=== PATIENT | male | born 1970 | race Caucasian/White ===

== ENCOUNTER → 2020-01-10 13:39 | Outpatient (CLI) | payer OTHER, SELFPAY ==
--- NOTE | ~2020-01-10 | XR_ITS ---
EXAMINATION: XR knee LT min 4V DATE: 01/10/2020 13:58 INDICATION: Left knee pain. TECHNIQUE: 4 views of left knee were obtained. COMPARISON: None. FINDINGS: Bone alignment is normal. No fracture. There is mild tricompartmental osteoarthritis. No kn ee joint effusion. IMPRESSION: 1. Mild left knee osteoarthritis. Reviewed, dictated and finalized at location A. [facility] [address]
== END ==
PROVIDERS: PCP Physician Assistant; Visit Provider Physician Assistant
DX: M17.12 Unilateral primary osteoarthritis, left knee (principal)
CPT/HCPCS: 73564

== ENCOUNTER → 2020-11-20 10:43 | Outpatient (CLI) | payer OTHER, SELFPAY ==
--- NOTE | ~2020-11-20 | XR_ITS ---
EXAMINATION: XR hip RT min 2V DATE: 11/20/2020 10:56 INDICATION: Right hip pain. TECHNIQUE: 2 views of right hip were obtained. COMPARISON: None. FINDINGS: Bone alignment is normal. No fracture. There is mild right hip osteoarthritis. IMPRESSION: 1. Mild right hip osteoarthritis. Reviewed, dictated and finalized at location A. [employer]
== END ==
PROVIDERS: PCP Family Medicine; Visit Provider Physician Assistant
DX: M25.551 Pain in right hip (principal); M16.11 Unilateral primary osteoarthritis, right hip
CPT/HCPCS: 73502

== ENCOUNTER 2021-02-18 18:02 | Outpatient (CLI) | payer OTHER, SELFPAY ==
--- NOTE | ~2021-02-18 | XR_ITS ---
XR abdomen/kub 1V DATE: 02/18/2021 18:33 INDICATION: Hematuria since yesterday. No abdominal pain. TECHNIQUE: AP projection, 2 views COMPARISON: 11/20/[address] abdomen 01/05/2014 KUB FINDINGS: There is no evidence of bowel obstruction. The psoas shadows are intact. No visceromegaly i s evident. No significant abnormal calcification is noted. IMPRESSION: No significant abnormality Reviewed, dictated and finalized at Location A. Reviewed, dictated and finalized at location A. IMPRESSION: No significant abnormality
== END 2021-02-18 18:03 | disposition home or self-care (01) ==
PROVIDERS: PCP Family Medicine; Visit Provider Physician Assistant
DX: R31.9 Hematuria, unspecified (principal)
CPT/HCPCS: 74018

== ENCOUNTER → 2021-05-23 06:50 | Outpatient (CLI) | payer OTHER, SELFPAY ==
[2021-05-23 19:11] LABS: SARS-CoV-2 RNA PCR Negative
== END ==
PROVIDERS: PCP Family Medicine; Visit Provider Physician Assistant
DX: R68.89 Other general symptoms and signs (principal); Z20.822 Contact with and (suspected) exposure to COVID-19
CPT/HCPCS: C9803; U0003; U0005

== ENCOUNTER 2022-12-31 01:09 | Day surgery (SDC) | payer OTHER, SELFPAY ==
[2022-12-17 13:28] VITALS: BMI 30.9
[2022-12-31 07:43] VITALS: BP 110/78; PULSE 64; RESP 18; TEMP 36.2; O2SAT 99
--- NOTE | 2022-12-31 07:46 | P.PNAN_ITS ---
Anes - Initial Pre Proc Eval Procedure: Operation Date: 12/31/22 09:00 Proposed Procedures p Screening Colonoscopy - Elio Viramontes MD Date/Time: 12/31/22 07:46 Surgeon: Elio Viramontes MD Pre Op Diagnosis: neoplasm screening Patient Data Age: 52 Gender: M Height: 1.78 m Weight: 97.6 kg Allergies Allergy/AdvReac Type Severity Reaction Status Date / Time methotrexate Allergy Other Verified 12/31/22 07:42 simvastatin Allergy Other Verified 12/31/22 07:42 Home Medications Medication Instructions Recorded Confirmed Type clobetasol 0.05 % topical cream 1 applic topical BID 11/12/22 12/31/22 History clobetasol 0.05 % topical foam 1 applic topical BID 11/12/22 12/31/22 History (Olux) etanercept 50 mg/mL (1 mL) 50 mg subcut WEEKLY 11/12/22 12/31/22 History subcutaneous syringe (Enbrel) meloxicam 15 mg tablet 15 mg PO DAILY #30 tabs 11/24/22 12/31/22 Rx Patient hx anesthesia problems: none Family hx anesthesia problems: none Results Review: All pre-operative results and documents have been reviewed as part of the pre- operative evaluation. [facility] Past Medical History Medical History (Updated 12/31/22 @ 08:10 by Elio Viramontes MD) Gastro-esophageal reflux disease without esophagitis Hyperlipidemia, unspecified Hypoglycemia, unspecified Insomnia, unspecified Nonalcoholic steatohepatitis (HOFFMAN) Obesity Psoriasis, unspecified Surgical History Surgical History (Updated 11/24/22 @ 10:37 by PORTILLO Mayer) Hx of cholecystectomy 01/01/2104 Family History Family History Other Family history of arthritis Family history of malignant neoplasm Hypertension Social History Social History (Updated 11/24/22 @ 09:35 by Marlys Nunez MA) Smoking status: Former smoker Tobacco type: cigarettes Smoking end date: 11/08/06 Alcohol intake: current Drinks per week: 4 Substance use: never Substance use type: does not use Lack of Transportation: No Lack of Food: Never True Current Housing: I Have Housing Concerned About Future Housing: No Difficulty Paying Gas/Electric Bills: No Difficulty Paying for Meds: No Currently Unemployed: No Living arrangements: with friend(s) Occupation/Education: occupation Gender identity (if verbalized by the patient): Male Sexual Orientation (if Verbalized by the Patient): Straight or Heterosexual Spiritual care concerns: No Anes - Eval Final PreProcedure Day of Procedure 12/31/22 07:46 Patient weight: overweight Heart: regular rate and rhythm Lungs: clear to auscultation Airway: Mallampati scale class II Neurological: alert and oriented Last oral intake: >/= 8 hours ASA classification: III Emergent: no Anesthetic plan: proceed Anesthesia type and monitoring: general GIVS and standard monitoring Results Review: All pre-operative results and documents have been reviewed as part of the pre- operative evaluation. Informed Consent: The patient's anesthetic plan and its attendant risks and benefits were discussed with the patient/family/POA. Questions were solicited and answers provided to the satisfaction of the patient/family/POA.
[2022-12-31] MEDS: LACTATED RINGERS 1,000 ML 150 ML IV CONT (07:53)
--- NOTE | 2022-12-31 08:09 | PM.HPGS ---
History of Present Illness History of Present Illness Consent: Risks, benefits, and alternatives have been discussed and questions answered. Patient agrees to proceed with procedure. Chief complaint: neoplasm screening Narrative: Ricardo Thomas is a 52 year old male Presents for colonoscopy. Patient's current weight appetite and bowel movements are normal. Patient denies abdominal pain. He has had no bleeding. Family history is noncontributory. Patient presents today for screening colonoscopy. Review of Systems Review of Systems: Review of systems noncontributory. [facility] Past Medical History Medical History (Updated 12/31/22 @ 08:10 by Elio Viramontes MD) Gastro-esophageal reflux disease without esophagitis Hyperlipidemia, unspecified Hypoglycemia, unspecified Insomnia, unspecified Nonalcoholic steatohepatitis (HOFFMAN) Obesity Psoriasis, unspecified Surgical History Surgical History (Updated 11/24/22 @ 10:37 by PORTILLO Mayer) Hx of cholecystectomy 01/01/2104 Family History Family History Other Family history of arthritis Family history of malignant neoplasm Hypertension Social History Social History (Updated 11/24/22 @ 09:35 by Marlys Nunez MA) Smoking status: Former smoker Tobacco type: cigarettes Smoking end date: 11/08/06 Alcohol intake: current Drinks per week: 4 Substance use: never Substance use type: does not use Lack of Transportation: No Lack of Food: Never True Current Housing: I Have Housing Concerned About Future Housing: No Difficulty Paying Gas/Electric Bills: No Difficulty Paying for Meds: No Currently Unemployed: No Living arrangements: with friend(s) Occupation/Education: occupation Gender identity (if verbalized by the patient): Male Sexual Orientation (if Verbalized by the Patient): Straight or Heterosexual Spiritual care concerns: No Meds Home Medications and Allergies Home Medications Medication Instructions Recorded Confirmed Type clobetasol 0.05 % topical cream 1 applic topical BID 11/12/22 12/31/22 History clobetasol 0.05 % topical foam 1 applic topical BID 11/12/22 12/31/22 History (Olux) etanercept 50 mg/mL (1 mL) 50 mg subcut WEEKLY 11/12/22 12/31/22 History subcutaneous syringe (Enbrel) meloxicam 15 mg tablet 15 mg PO DAILY #30 tabs 11/24/22 12/31/22 Rx Allergies Allergy/AdvReac Type Severity Reaction Status Date / Time methotrexate Allergy Other Verified 12/31/22 07:42 simvastatin Allergy Other Verified 12/31/22 07:42 Vital Signs Vital Signs - 24 hr 12/31/22 07:43 Temperature 97.2 F L Pulse Rate 64 Respiratory Rate 18 Blood Pressure 110/78 Pulse Oximetry 99 Oxygen Delivery Room Air Exam Narrative: Physical exam reveals patient to be alert. Vital signs stable. HEENT exam is unremarkable. Patient is anicteric. Lungs are clear to auscultation and percussion. Heart is without murmur or extra sounds. Abdomen bowel sounds are present soft nontender with no organomegaly. Digital external rectal exam is normal. Assessment and Plan Assessment and plan (1) Encounter for screening colonoscopy: Code(s): Z12.11 - Encounter for screening for malignant neoplasm of colon Status: Acute Assessment and Plan: Patient presents today for screening colonoscopy. He appears to be at average risk for colon polyps. Further recommendations may be given after endoscopy.
[2022-12-31 08:56] VITALS: BP 104/77; PULSE 63; RESP 19; TEMP 36.2; O2SAT 99
[2022-12-31 09:06] VITALS: BP 114/77; PULSE 60; RESP 21; TEMP 36.2; O2SAT 99
[2022-12-31 09:14] VITALS: BP 116/75; PULSE 58; RESP 21; TEMP 36.2; O2SAT 99
== END 2022-12-31 09:16 | disposition home or self-care (01) ==
PROVIDERS: PCP Physician Assistant; Visit Provider Internal Medicine Gastroenterology
PROC: 0DJD8ZZ Inspection of Lower Intestinal Tract, Via Natural or Artificial Opening Endoscopic (ICD-10-PCS; CPT 45378; principal; 2022-12-31 09:00)
DX: Z12.11 Encounter for screening for malignant neoplasm of colon (principal); K64.8 Other hemorrhoids; K57.30 Diverticulosis of large intestine without perforation or abscess without bleeding; L40.9 Psoriasis, unspecified; K75.81 Nonalcoholic steatohepatitis (NASH); Z79.620 Long term (current) use of immunosuppressive biologic; E66.9 Obesity, unspecified; Z68.29 Body mass index [BMI] 29.0-29.9, adult; Z87.891 Personal history of nicotine dependence
CPT/HCPCS: 45378; J2704; J7120

== ENCOUNTER 2025-01-22 15:16 | Outpatient (CLI) | payer OTHER, SELFPAY ==
--- NOTE | ~2025-01-22 | XR_ITS ---
XR cervical spine 4-5V Ordering provider: Kamilah Roque PA-C History: . M54.2 - Cervicalgia . Comparison: None. FINDINGS: VERTEBRAL BODIES: Normal height and alignment. No visible fracture or subluxation. The dens is intact . DISK SPACES: Narrowing of the disc C4-C5 and C5-C6. Multilevel uncovertebral joint osteoarthritic markus nges. PARASPINOUS SOFT TISSUES: No prevertebral soft tissue swelling. IMPRESSION: No acute osseous abnormality cervical spine. Multilevel degenerative disease. Reviewed, dictated and finalized at location A.
== END 2025-01-22 15:17 | disposition home or self-care (01) ==
LOC: ANHIMG 15:22
PROVIDERS: PCP Family Medicine
DX: M50.321 Other cervical disc degeneration at C4-C5 level (principal); M50.322 Other cervical disc degeneration at C5-C6 level
CPT/HCPCS: 72050

== ENCOUNTER 2025-02-10 01:26 | Emergency (ER) | payer OTHER, SELFPAY ==
[2025-02-10] VITALS (16 sets, daily range): BP systolic 121–147; BP diastolic 75–94; PULSE 63–84; RESP 16; TEMP 36.4–36.7; O2SAT 99–100
--- NOTE | ~2025-02-10 | CT_ITS ---
EXAMINATION: CT abdomen pelvis wo con DATE: 02/10/2025 05:32 INDICATION: Gross hematuria. Urinary tension. TECHNIQUE: Computed tomography (CT) of the abdomen and pelvis was performed without intravenous contr ast. Automated exposure control and iterative reconstruction technique were employed. The dose-length product was 739.05 mGy-cm. COMPARISON: None FINDINGS: Lung bases are clear. Heart size is normal. No pericardial or pleural effusion. Multiple subcentimete r low-attenuation hepatic cysts. Status post cholecystectomy. Spleen, pancreas and bilateral adrenal glands are normal. Kidneys and ureters are normal with no urolithiasis, hydroureteronephrosis or syd nephric/ureteral stranding. Espinosa catheter in the bladder with small amount of low-attenuation urine along side higher attenuation likely clot located along the Espinosa catheter bulb. There are also a few <4 mm calcified bladder stones. Mild diverticulosis along the sigmoid colon without adjacent compari son to suggest diverticulitis. Small bowel and appendix are normal. No free intraperitoneal gas or fl uid. No pathologically enlarged abdominal or pelvic lymphadenopathy. IMPRESSION: 1. Small amount of clot surrounding a Espinosa catheter bulb in the bladder along with a few <4 mm bladd er stones. Reviewed, dictated and finalized at location A. IMPRESSION: 1. Small amount of clot surrounding a Espinosa catheter bulb in the bladder along with a few <4 mm bladder stones.
[2025-02-10 04:05] LABS: Basophils Percent Auto 0.1 % (0.2-1.2); Eosinophils Absolute Auto 0.1 K/mm3 (0-0.3); Eosinophils Percent Auto 1.2 % (0-4.4); Hematocrit 40.9 % (42.0-52.0); Hemoglobin 13.4 g/dL (14.0-18.0); Immature Granulocyte Absolute 0.02 K/mm3 (0.00-0.031); Immature Granulocyte Percent A 0.2 % (0-0.5); Lymphocytes Absolute Auto 1.44 K/mm3 (0.9-3.2); Mean Corpuscular HGB Conc 32.8 g/dl (32-36); Mean Corpuscular Hemoglobin 28.8 pg (26-34); Mean Corpuscular Volume 87.8 fl (80-100); Mean Platelet Volume 9.5 fl (7.4-10.4); Monocytes Absolute Auto 0.8 K/mm3 (0.1-0.6); Neutrophils Absolute Auto 5.7 K/mm3 (1.3-6.7); Neutrophils Percent Auto 70.5 % (45.5-73.1); Platelet Count Result 216 k/mm3 (150-375); Red Blood Count 4.66 M/mm3 (4.6-6.20); Red Cell Distribution Width 11.8 % (11.5-14.5)
[2025-02-10 04:13] LABS: Alanine Aminotransferase 27 U/L (6-50); Albumin Level 4.3 g/dL (3.5-5.1); Alkaline Phosphatase 96 U/L (38-126); Anion Gap 10 mmol/L (4-12); Aspartate Amino Transferase 27 U/L (17-59); Bilirubin,Total 0.4 mg/dL (0.2-1.3); Blood Urea Nitrogen 18 mg/dL (9-20); Calcium 9.2 mg/dL (8.4-10.2); Carbon Dioxide 27 mmol/L (22-30); Chloride 102 mmol/L (98-107); Estimated CRCL calculation 78 ml/min; Estimated Glomerular Filt Rate > 60; Glucose 94 mg/dL (65-110); Potassium 4.2 mmol/L (3.4-5.0); Sodium 139 mmol/L (137-145)
[2025-02-10 04:37] LABS: Add Urine Microscopic? YES; Appearance Urine Turbid (Clear); Bacteria Urine None Seen /hpf; Bilirubin Urine 1+ (Negative); Blood Urine 1+ (Negative); Color Urine Light Brown (Yellow); Glucose Urine UA Negative (Negative); Ketones Urine Negative (Negative); Leukocyte Esterase Ur 2+ LEU/UL (Negative); Need Manual Microscopic Reviewed; Nitrate Urine Positive (Negative); Non Pathogenic Casts 0-2; Protein Urine 1+ mg/dL (Negative); RBC Urine >100 /hpf (0-2); Specific Grav Ur 1.023 (1.001-1.035); Squamous Epithelial Cell Urine None Seen /hpf (Few); WBC Urine 21-50 /hpf (0-3)
--- NOTE | 2025-02-10 05:07 | ED_ITS ---
HPI - Male Genitourinary General Chief complaint: Urogenital-Male Stated complaint: think I have a kidney stone blocking everything Time Seen by Provider: 02/10/25 04:33 Source: patient Mode of arrival: ambulatory Limitations: no limitations History of Present Illness HPI Narrative: Patient presents with concern for a kidney stone. A few days ago, 02/07 he was having right-sided back pain and then right quadrant pain. He then had gross hematuria that the resolved. He has a history of kidney stone 2 years ago. He states the back pain is still there but better. At approximately 2:00 p.m. on 02/09/2025 he had his last void and then became unable to urinate afterwards only just dribbling blood. He started having abdominal pain. This has never happened before. He denies any fevers or chills. Urinary Espinosa catheter placed by nurse after bladder scan performed and prior to my assessment although I was informed about its placement. On my assessment patient states back pain is much better and his abdominal discomfort as well. He states his pain is only 2/10 in severity now. Related Data Home Medications ?Medication ?Instructions ?Recorded ?Confirmed ?Last Taken ?Type clobetasol 0.05 % topical cream 1 applic topical BID 11/12/22 01/22/25 12/29/22 History Allergies Allergy/AdvReac Type Severity Reaction Status Date / Time methotrexate Allergy Other Verified 02/10/25 17:09 simvastatin Allergy Other Verified 02/10/25 17:09 [facility] Past Medical History Medical History Kidney stone Hyperlipidemia, unspecified Insomnia, unspecified Psoriasis, unspecified Gastro-esophageal reflux disease without esophagitis Nonalcoholic steatohepatitis (HOFFMAN) Surgical History Surgical History Hx of cholecystectomy 01/01/2104 Family History Family History Other Family history of arthritis Family history of malignant neoplasm Hypertension Social History Social History Smoking status: Former smoker Tobacco type: cigarettes Smoking end date: 11/08/06 Alcohol intake: current Drinks per week: 2 Substance use: never Substance use type: does not use Lack of Transportation: No Lack of Food: Never True Current Housing: I Have Housing Concerned About Future Housing: No Difficulty Paying Gas/Electric Bills: No Difficulty Paying for Meds: No Currently Unemployed: No Living arrangements: with friend(s) Occupation/Education: occupation Gender identity (if verbalized by the patient): Male Sexual Orientation (if Verbalized by the Patient): Straight or Heterosexual Spiritual care concerns: No Exam 2 Narrative: GENERAL: Well-appearing, well-nourished, and in no acute distress. HEAD: Normocephalic, atraumatic. EYES: Non injected, non icteric ENT: Nares clear, no rhinorrhea or epistaxis. NECK: Supple. CHEST: Speaking in full sentences. No respiratory distress. HEART: Regular rate and rhythm. . ABDOMEN: Soft, nondistended. No tenderness to palpation : Espinosa catheter in place. Initial bag has been drained - see RN notes for output values. There is approximately 100cc of light pink colored urine in the bag on my assessment, catheter draining light pink. EXTREMITIES: Normal range of motion. No lower extremity edema. SKIN: Warm, dry, no rash. NEURO: No focal deficits. Alert and oriented x3. PSYCH: Normal mood and affect. Course Vital Signs Vital signs: Vital Signs Temperature 97.6 F 02/10/25 01:28 Pulse Rate 84 02/10/25 01:28 Respiratory Rate 16 02/10/25 01:28 Blood Pressure 147/81 H 02/10/25 01:28 Pulse Oximetry 99 02/10/25 01:28 Oxygen Delivery Room Air 02/10/25 01:28 Temperature 97.8 F 02/10/25 05:13 Pulse Rate 66 02/10/25 07:16 Respiratory Rate 16 02/10/25 07:16 Blood Pressure 134/94 H 02/10/25 07:16 Pulse Oximetry 100 02/10/25 07:16 Oxygen Delivery Room Air 02/10/25 01:28 MDM - Male Genitourinary MDM Narrative Medical decision making narrative: Patient presents with concern for kidney stone. On 02/07/2025 he had right- sided back pain. he developed hematuria that then resolved. At approximately 2:00 p.m. on 02/09/25 he had his last void, suddenly unable to go except for dribbling just blood. In the emergency department he is afebrile with acceptable vital signs, mild elevation. Blood pressure but normalized on repeat. Patient had 740cc urine on bladder scan so Espinosa catheter placed for urinary retention. Mild normocytic anemia, no prior for comparison. No bacteriuria seen however in addition to hematuria, there is evidence of white blood cells, leukocyte esterase, and nitrate. No prior urine culture to guide therapy but will start an antibiotic with 1st dose given in the emergency department the rest of the course prescribed. Nurse notes that there has been appropriate urine output. Bag has been dumped at the time of my assessment and continues to drain, pink urine but otherwise without large clot burden. Spoke with Dr. Farrar at approximately 7:05 a.m. to discuss the plan and he concurs that keeping the Espinosa in place is reasonable and to call for an appointment within the week for trial of void. Aware that CBI was not performed and patient does not have a [address] but it has been draining appropriately and there was evidence of <4mm bladder stones. Recommends having patient take Flomax. Patient given first dose in ED with more prescribed. Also given Rx for Zofran and ibuprofen. Provided a leg bag and given strict ED return precautions as well sa follow up instructions. He verifies understanding and is in agreement. Differential Diagnosis Differential diagnosis: Likely urinary tract infection, acute retention of urine and other (kidney/ureteral/bladder stone; obstruction; malignancy; BPH) Lab Data Attestation: I reviewed the patient's lab results. Lab results narrative: Normal chemistry 02/10/25 03:57 02/10/25 03:57 Labs: Lab Results 02/10/25 Range/Units 03:57 WBC 8.0 (4.5-10.0) K/mm3 RBC 4.66 (4.6-6.20) M/mm3 Hgb 13.4 L (14.0-18.0) g/dL Hct 40.9 L (42.0-52.0) % MCV 87.8 (80-100) fl MCH 28.8 (26-34) pg MCHC 32.8 (32-36) g/dl RDW 11.8 (11.5-14.5) % Plt Count 216 (150-375) k/mm3 MPV 9.5 (7.4-10.4) fl Immature Gran % (Auto) 0.2 (0-0.5) % Neut % (Auto) 70.5 (45.5-73.1) % Lymph % (Auto) 18.0 L (18.3-44.2) % [place] % (Auto) 10.0 H (2.6-8.5) % Eos % (Auto) 1.2 (0-4.4) % Baso % (Auto) 0.1 L (0.2-1.2) % Lymph # (Auto) 1.44 (0.9-3.2) K/mm3 [place] # (Auto) 0.8 H (0.1-0.6) K/mm3 Eos # (Auto) 0.1 (0-0.3) K/mm3 Baso # (Auto) 0.0 (0.0-0.1) K/mm3 Abs Immat Gran (auto) 0.02 (0.00-0.031) K/mm3 Absolute Neuts (auto) 5.7 (1.3-6.7) K/mm3 Absolute Nucleated RBC 0.000 (0.0-0.012) K/mm3 Nucleated RBC % 0.0 (0.0-0.2) % Sodium 139 (137-145) mmol/L Potassium 4.2 (3.4-5.0) mmol/L Chloride 102 (98-107) mmol/L Carbon Dioxide 27 (22-30) mmol/L Anion Gap 10 (4-12) mmol/L BUN 18 (9-20) mg/dL Creatinine 1.01 (0.7-1.3) mg/dL Estim Creat Clear Calc 78 ml/min Estimated GFR > 60 (59 - ) Glucose 94 (65-110) mg/dL Calcium 9.2 (8.4-10.2) mg/dL Total Bilirubin 0.4 (0.2-1.3) mg/dL AST 27 (17-59) U/L ALT 27 (6-50) U/L Alkaline Phosphatase 96 (38-126) U/L Total Protein 8.0 (6.3-8.2) g/dL Albumin 4.3 (3.5-5.1) g/dL Urine Color Light brown H (Yellow) Urine Appearance Turbid H (Clear) Urine pH 5.0 (5.0-9.0) Ur Specific [place] 1.023 (1.001-1.035) Urine Protein 1+ H (Negative) mg/dL Urine Glucose (UA) Negative (Negative) mg/dL Urine Ketones Negative (Negative) mg/dL Ur Blood (Man) 1+ H (Negative) Urine Nitrate Positive H (Negative) Urine Bilirubin 1+ H (Negative) Urine Urobilinogen 1.0 (<2.0) mg/dL Add Ur Microanalysis Reviewed Leukocyte Esterase Rfl 2+ H (Negative) JEFF/UL Urine RBC >100 H (0-2) /hpf Urine WBC 21-50 H (0-3) /hpf Ur Squamous Epith Cells None seen (Few) /hpf Urine Bacteria None seen /hpf Urine Casts 0-2 Imaging Data Radiologist's impression: Impressions Abdomen/Pelvis CT 02/10/25 06:39 IMPRESSION: 1. Small amount of clot surrounding a Espinosa catheter bulb in the bladder along with a few <4 mm bladder stones. Discharge Plan Discharge Clinical Impression: Acute urinary retention, Hematuria, Normocytic anemia, Bladder calculi, Abnormal urinalysis Patient Disposition: Home, Self-Care Condition: Stable Instructions: Antibiotic Form, Urinary Retention in Men (ED), Urinary Tract Infection in Men (ED), Espinosa Catheter Placement and Care (ED), Hematuria (ED), Anemia (ED), Bladder Stones (ED), How to Change a Catheter Drainage Bag (DC) Additional Instructions: Although there was no bacteria on your urinalysis, there were some other markers that were concerning for infection and so you were given your 1st dose of antibiotic in the emergency department and the rest of the course has been prescribed you can start this tonight. Call the office to schedule appointment with Dr. aFrrar within the next 7 days for a trial of void. In the meantime, you can use the prescribed medications to hopefully help expel the stones. Return to the emergency department with any new/worsening/recurring symptoms such as Espinosa catheter not draining, intractable pain or nausea/vomiting, or fever >100.4F, etc. Patient Language: [place] Prescriptions: New sulfamethoxazole-trimethoprim [Bactrim DS] 800-160 mg tablet 1 tablet PO Q12H 10 Days Qty: 20 0RF tamsulosin [Flomax] 0.4 mg capsule 0.4 mg PO HS Qty: 14 0RF ibuprofen 600 mg tablet 600 mg PO TID PRN (Reason: pain) Qty: 30 0RF ondansetron 4 mg tablet,disintegrating 4 mg PO Q8H PRN (Reason: nausea and vomiting) Qty: 7 0RF No Action clobetasol 0.05 % cream 1 applic topical BID cyclobenzaprine 5 mg tablet 5 mg PO TID PRN (Reason: muscle spasm) Qty: 60 1RF diclofenac sodium 75 mg tablet,delayed release (DR/EC) 75 mg PO BID Qty: 60 1RF amoxicillin-pot clavulanate 500-125 mg tablet 1 tablet PO Q12H Qty: 14 0RF Follow-up/Referrals: Alejandro Farrar MD [Physician] - (urology) Wili Eason MD [Primary Care Provider] - Stand Alone Forms: Work/School Release IP Time of Disposition: 07:16
[2025-02-10] MEDS: ONDANSETRON INJ 4 MG/2 ML VIAL IV PUSH (07:33)
[2025-02-10] MEDS: TAMSULOSIN HCL 0.4 MG CAPSULE PO (07:34)
[2025-02-10] MEDS: KETOROLAC 15 MG/ML VIAL (*BKC) IV PUSH (07:34)
[2025-02-10] MEDS: SULFAMETHOXAZOLE/TRIMETHOPRIM 800/160 MG DS TABLET 1 TAB PO (07:34)
== END 2025-02-10 07:56 | disposition home or self-care (01) ==
PROVIDERS: Emergency Provider Student in an Organized Health Care Education/Training Program; PCP Family Medicine
DX: N21.0 Calculus in bladder (principal); R33.9 Retention of urine, unspecified; R31.9 Hematuria, unspecified; D64.9 Anemia, unspecified; R82.998 Other abnormal findings in urine; K75.81 Nonalcoholic steatohepatitis (NASH); E78.5 Hyperlipidemia, unspecified; K21.9 Gastro-esophageal reflux disease without esophagitis; L40.9 Psoriasis, unspecified; Z87.442 Personal history of urinary calculi; Z87.891 Personal history of nicotine dependence; Z90.49 Acquired absence of other specified parts of digestive tract
CPT/HCPCS: 36415; 74176; 80053; 81001; 85025; 87086; 96374; 96375; 99284; A9270; J1885; J2405

== ENCOUNTER 2025-02-10 17:09 | Emergency (ER) | payer OTHER, SELFPAY ==
[2025-02-10 17:24] VITALS: BP 131/78; PULSE 95; RESP 20; TEMP 36.6; O2SAT 98
--- NOTE | 2025-02-10 19:54 | ED.MALEGU ---
HPI - Male Genitourinary General Chief complaint: Urogenital-Male Stated complaint: BLOCKED URINARY CATH Time Seen by Provider: 02/10/25 19:22 Source: patient Mode of arrival: ambulatory Limitations: no limitations History of Present Illness HPI Narrative: Patient presents with a clogged urinary catheter that was placed overnight on February 09 due to urinary retention from stones. It stopped draining between 1:30 and 2pm. Started developing some R flank pain and abdominal pain/pressure again. No fevers/chills. He had drained the bag earlier and it was dark brown urine. He then had dark clot and when the Hgoan stopped draining he was having some drainage around the urethral meatus. Related Data Home Medications ?Medication ?Instructions ?Recorded ?Confirmed ?Last Taken ?Type clobetasol 0.05 % topical cream 1 applic topical BID 11/12/22 01/22/25 12/29/22 History Allergies Allergy/AdvReac Type Severity Reaction Status Date / Time methotrexate Allergy Other Verified 02/10/25 17:09 simvastatin Allergy Other Verified 02/10/25 17:09 [facility] Past Medical History Medical History Kidney stone Hyperlipidemia, unspecified Insomnia, unspecified Psoriasis, unspecified Gastro-esophageal reflux disease without esophagitis Nonalcoholic steatohepatitis (HOFFMAN) Surgical History Surgical History Hx of cholecystectomy 01/01/2104 Family History Family History Other Family history of arthritis Family history of malignant neoplasm Hypertension Social History Social History Smoking status: Former smoker Tobacco type: cigarettes Smoking end date: 11/08/06 Alcohol intake: current Drinks per week: 2 Substance use: never Substance use type: does not use Lack of Transportation: No Lack of Food: Never True Current Housing: I Have Housing Concerned About Future Housing: No Difficulty Paying Gas/Electric Bills: No Difficulty Paying for Meds: No Currently Unemployed: No Living arrangements: with friend(s) Occupation/Education: occupation Gender identity (if verbalized by the patient): Male Sexual Orientation (if Verbalized by the Patient): Straight or Heterosexual Spiritual care concerns: No Exam Narrative: GENERAL: Well-appearing, well-nourished, and in no acute distress. HEAD: Normocephalic, atraumatic. EYES: Non injected, non icteric ENT: Nares clear, no rhinorrhea or epistaxis. NECK: Supple. CHEST: Speaking in full sentences. No respiratory distress. HEART: Regular rate and rhythm. . ABDOMEN: Soft, nondistended. EXTREMITIES: Normal range of motion. No lower extremity edema. : <100cc dark brown urine in leg bag from indwelling Hogan catheter SKIN: Warm, dry, no rash. NEURO: No focal deficits. Alert and oriented x3. PSYCH: Normal mood and affect. Course Vital Signs Vital signs: Vital Signs Temperature 98 F 02/10/25 17:24 Pulse Rate 95 02/10/25 17:24 Respiratory Rate 20 02/10/25 17:24 Blood Pressure 131/78 02/10/25 17:24 Pulse Oximetry 98 02/10/25 17:24 Temperature 98 F 02/10/25 17:24 Pulse Rate 88 02/10/25 21:50 Respiratory Rate 17 02/10/25 21:50 Blood Pressure 129/86 02/10/25 21:50 Pulse Oximetry 100 02/10/25 21:50 MDM - Male Genitourinary MDM Narrative Medical decision making narrative: Patient presents with indwelling hogan catheter that stopped draining at approximately 1:30 or 2pm. This was placed overnight February 09 due to urinary retention from hematuria associated with bladder stones and infection. In the emergency department they are afebrile with vital signs within normal limits. Bladder scan 212 cc. RN able to irrigate/flush and get the catheter to start draining again. Normal renal function. Hemoglobin essentially unchanged from earlier. Patient asking if he can be taught to flush the catheter at home because he would feel comfortable trialing that at home if it were to occur again. Discussed with Dr Farrar at approximately 21:25, whom I had discussed the plan with earlier this morning. Concurs with staying the same in regards to Flomax (and antibiotics). Send home with supplies to flush on his own to trouble shoot and, if clots again, return to the ED for CBI. Differential Diagnosis Differential diagnosis: Likely other (indwelling cathter malfunction; hematuria with clots; bladder stone/possible occlusion) Lab Data Attestation: I reviewed the patient's lab results. 02/10/25 20:48 02/10/25 20:48 Labs: Lab Results 02/10/25 Range/Units 20:48 WBC 7.6 (4.5-10.0) K/mm3 RBC 4.89 (4.6-6.20) M/mm3 Hgb 13.7 L (14.0-18.0) g/dL Hct 43.2 (42.0-52.0) % MCV 88.3 (80-100) fl MCH 28.0 (26-34) pg MCHC 31.7 L (32-36) g/dl RDW 11.8 (11.5-14.5) % Plt Count 242 (150-375) k/mm3 MPV 9.6 (7.4-10.4) fl Immature Gran % (Auto) 0.3 (0-0.5) % Neut % (Auto) 70.4 (45.5-73.1) % Lymph % (Auto) 19.9 (18.3-44.2) % Garfield % (Auto) 7.8 (2.6-8.5) % Eos % (Auto) 1.3 (0-4.4) % Baso % (Auto) 0.3 (0.2-1.2) % Lymph # (Auto) 1.51 (0.9-3.2) K/mm3 Garfield # (Auto) 0.6 (0.1-0.6) K/mm3 Eos # (Auto) 0.1 (0-0.3) K/mm3 Baso # (Auto) 0.0 (0.0-0.1) K/mm3 Abs Immat Gran (auto) 0.02 (0.00-0.031) K/mm3 Absolute Neuts (auto) 5.3 (1.3-6.7) K/mm3 Absolute Nucleated RBC 0.000 (0.0-0.012) K/mm3 Nucleated RBC % 0.0 (0.0-0.2) % PT 13.7 (11.1-14.7) Seconds INR 1.0 APTT 36.8 (22.3-36.8) Seconds Sodium 139 (137-145) mmol/L Potassium 4.3 (3.4-5.0) mmol/L Chloride 102 (98-107) mmol/L Carbon Dioxide 28 (22-30) mmol/L Anion Gap 9 (4-12) mmol/L BUN 18 (9-20) mg/dL Creatinine 1.14 (0.7-1.3) mg/dL Estim Creat Clear Calc 70 ml/min Estimated GFR > 60 (59 - ) Glucose 88 (65-110) mg/dL Calcium 9.4 (8.4-10.2) mg/dL Discharge Plan Discharge Clinical Impression: Encounter for evaluation of Hogan catheter Patient Disposition: Home Condition: Stable Instructions: Antibiotic Form, Hogan Catheter Placement and Care (ED), How to Strain Your Urine (ED) Additional Instructions: Dr. Farrar recommends continuing with the original plan, taking the Flomax that was prescribed as well as the antibiotic. You are being taught how to flush/irrigate the catheter see can attempt to trouble shoot at home if this clogged/clots again. However, if unable to successfully get it to drain, do not hesitate to return to the emergency department. You also continue to strain your urine and take any stones to follow up with urology. Patient Language: Slovak Prescriptions: No Action clobetasol 0.05 % cream 1 applic topical BID cyclobenzaprine 5 mg tablet 5 mg PO TID PRN (Reason: muscle spasm) Qty: 60 1RF diclofenac sodium 75 mg tablet,delayed release (DR/EC) 75 mg PO BID Qty: 60 1RF amoxicillin-pot clavulanate 500-125 mg tablet 1 tablet PO Q12H Qty: 14 0RF sulfamethoxazole-trimethoprim [Bactrim DS] 800-160 mg tablet 1 tablet PO Q12H 10 Days Qty: 20 0RF tamsulosin [Flomax] 0.4 mg capsule 0.4 mg PO HS Qty: 14 0RF ibuprofen 600 mg tablet 600 mg PO TID PRN (Reason: pain) Qty: 30 0RF ondansetron 4 mg tablet,disintegrating 4 mg PO Q8H PRN (Reason: nausea and vomiting) Qty: 7 0RF Follow-up/Referrals: Alejandro Farrar MD [Physician] - Wili Eason MD [Primary Care Provider] - Stand Alone Forms: Work/School Release IP Time of Disposition: 21:35
--- NOTE | 2025-02-10 20:43 | PC.NURSE ---
This RN irrigated pt catheter. pt states i feel relief of pressure . Catheter is draining at this time. EDP made aware.
[2025-02-10 20:59] LABS: Basophils Percent Auto 0.3 % (0.2-1.2); Eosinophils Absolute Auto 0.1 K/mm3 (0-0.3); Eosinophils Percent Auto 1.3 % (0-4.4); Hematocrit 43.2 % (42.0-52.0); Hemoglobin 13.7 g/dL (14.0-18.0); Immature Granulocyte Absolute 0.02 K/mm3 (0.00-0.031); Immature Granulocyte Percent A 0.3 % (0-0.5); Lymphocytes Absolute Auto 1.51 K/mm3 (0.9-3.2); Lymphocytes Percent Auto 19.9 % (18.3-44.2); Mean Corpuscular HGB Conc 31.7 g/dl (32-36); Mean Corpuscular Volume 88.3 fl (80-100); Mean Platelet Volume 9.6 fl (7.4-10.4); Monocytes Absolute Auto 0.6 K/mm3 (0.1-0.6); Monocytes Percent Auto 7.8 % (2.6-8.5); Neutrophils Absolute Auto 5.3 K/mm3 (1.3-6.7); Neutrophils Percent Auto 70.4 % (45.5-73.1); Platelet Count Result 242 k/mm3 (150-375); Red Blood Count 4.89 M/mm3 (4.6-6.20); Red Cell Distribution Width 11.8 % (11.5-14.5); White Blood Count 7.6 K/mm3 (4.5-10.0)
[2025-02-10 21:00] VITALS: BP 129/86; PULSE 88; RESP 17; O2SAT 100
[2025-02-10 21:08] LABS: Anion Gap 9 mmol/L (4-12); Blood Urea Nitrogen 18 mg/dL (9-20); Calcium 9.4 mg/dL (8.4-10.2); Carbon Dioxide 28 mmol/L (22-30); Chloride 102 mmol/L (98-107); Estimated CRCL calculation 70 ml/min; Estimated Glomerular Filt Rate > 60; Glucose 88 mg/dL (65-110); Potassium 4.3 mmol/L (3.4-5.0); Sodium 139 mmol/L (137-145)
[2025-02-10 21:09] LABS: Prothrombin Time 13.7 Seconds (11.1-14.7)
[2025-02-10 21:10] LABS: Partial Thromboplastin Time 36.8 Seconds (22.3-36.8)
[2025-02-10 21:50] VITALS: BP 129/86; PULSE 88; RESP 17; O2SAT 100
== END 2025-02-10 21:53 | disposition home or self-care (01) ==
PROVIDERS: Emergency Provider Student in an Organized Health Care Education/Training Program; PCP Family Medicine
DX: T83.098A Other mechanical complication of other urinary catheter, initial encounter (principal); N21.0 Calculus in bladder; K75.81 Nonalcoholic steatohepatitis (NASH); E78.5 Hyperlipidemia, unspecified; L40.9 Psoriasis, unspecified; K21.9 Gastro-esophageal reflux disease without esophagitis; Z87.442 Personal history of urinary calculi; Z87.891 Personal history of nicotine dependence; Z90.49 Acquired absence of other specified parts of digestive tract; Y84.6 Urinary catheterization as the cause of abnormal reaction of the patient, or of later complication, without mention of misadventure at the time of the procedure
CPT/HCPCS: 36415; 80048; 85025; 85610; 85730; 99283

== ENCOUNTER 2025-03-05 14:59 | Outpatient (CLI) | payer OTHER, SELFPAY ==
--- NOTE | 2025-03-05 15:13 | ECG_ITS ---
Test Date: 2025-03-05 15:25:07 Measurements Intervals [place] Rate: 71 P: 14 ND: 153 QRS: -9 QRSD: 108 T: 24 QT: 371 QTc: 403 Interpretive Statements SINUS RHYTHM WITH SINUS ARRHYTHMIA INCOMPLETE RIGHT BUNDLE BRANCH BLOCK BASELINE ARTIFACT- I, II, III, AVR, AVL, AVF, V1-V6 BORDERLINE ECG No previous ECG available for comparison Electronically Signed On 03-05-2025 17:01:28 CDT by Karlos Lopez D.O.
== END 2025-03-05 15:00 | disposition home or self-care (01) ==
PROVIDERS: PCP Family Medicine; Visit Provider Urology
DX: F17.210 Nicotine dependence, cigarettes, uncomplicated (principal); Z01.818 Encounter for other preprocedural examination; I45.10 Unspecified right bundle-branch block
CPT/HCPCS: 93005

== ENCOUNTER 2025-03-08 01:38 | Day surgery (SDC) | payer OTHER, SELFPAY ==
[2025-03-05 14:38] VITALS: BMI 30.2
--- NOTE | 2025-03-05 14:40 | PC.NURSE ---
Report to the Outpatient Waiting Room, entrance under the green pavilion located off [facility], at time _1100_ on date _[id number]_. Planned Procedure Time: _1pm_.? Time changes happen often and if your time is changed the preop area will call you the afternoon before. - You and your visitor will be asked to self-screen and do not enter if you have any COVID symptoms. Please call surgeon if you need to reschedule. - A mask is optional within the hospital at this time. Patients may have clear liquids (water, carbonated beverages, clear teas, apple juice) until 3 hours prior to surgery with a maximum of 20 ounces. - No food from midnight until time of surgery and no smoking, or chewing tobacco (or any form of nicotine). No chewing gum, candy or mints. Take only the following medications with a SIP of water on the morning of surgery: ___None__ DO NOT STOP ANY OF YOUR OTHER PRESCRIPTION MEDICATIONS PRIOR TO SURGERY EXCEPT THE FOLLOWING Hold all vitamins and supplements for 3 days per anesthesiologist. Medications to discontinue per physician ___Patient holding Ibuprofen per 's intructions.___ Date to take last dose Please no make-up, nail central african, hairspray, perfume, deodorant, or body powder the day of surgery.? No jewelry (including any body piercings) or valuables the day of surgery, leave them at home.? Please take a shower or bath the night before, or the morning of, surgery with an antibacterial soap.? Wear comfortable, loose fitting clothing. - Jewelry must be removed prior to entering the operating room.? Rings and piercings that are not removed may be cut off. - The hospital will not accept responsibility for valuables.? - Please leave all valuables, including medications, at home the day of surgery. If you are going home after surgery, a licensed truck driver heavy must drive you home.? - NO public transportation without another adult if you receive anesthesia. - We recommend that an adult stay with you for 24 hours following discharge. - We also recommend that you do not drive, make important decision, drink alcoholic beverages, or take any drugs that were not prescribed by your health care provider for at least 24 hours after your discharge time. Follow any additional instructions given to you from your surgeon. Telephone instructions given to __Craig__and asked if any additional questions and then verbalized understanding. Patient advised to call surgeon office or pre surgery nurse liaison [phone] if any additional questions.
[2025-03-08] VITALS (10 sets, daily range): BP systolic 116–140; BP diastolic 73–92; PULSE 45–66; RESP 13–18; TEMP 36.6; O2SAT 98–100
--- NOTE | ~2025-03-08 | XR_ITS ---
INTRAOPERATIVE FLUOROSCOPY: CLINICAL HISTORY: 54 years old Male; BILATERAL RETRO PROCEDURE COMMENTS: Limited intraoperative fluoroscopy of the lower abdomen and pelvis was performed. CUMULATIVE DOSE: 8.25 mGy FLUOROSCOPY TIME: 20.1 seconds FINDINGS/IMPRESSION: Please refer to operative note for further details. Reviewed, dictated and finalized at location A.
--- NOTE | 2025-03-08 06:30 | WPDHPUPDATE1 ---
History and Physical Update Update Date/Time: 03/08/25 06:30 History and Physical has been reviewed, including an updated exam of the patient. There are NO changes in the patient's condition. Risks, benefits, and alternatives have been discussed and questions answered. Patient agrees to proceed with procedure.
[2025-03-08] MEDS: LACTATED RINGERS 1,000 ML 30 ML IV CONT ×2 (10:40→13:21)
--- NOTE | 2025-03-08 11:12 | P.PNAN_ITS ---
Anes - Initial Pre Proc Eval Procedure: Operation Date: 03/08/25 13:00 Proposed Procedures p Trans Urethral Resection Bladder Tumor with Gemcitabine Instillation - Maxim Craft MD s Cystoscopy with Bilateral Retrograde Pyelogram - Maxim Craft MD Date/Time: 03/08/25 11:12 Surgeon: Maxim Craft MD Pre Op Diagnosis: Bladder Tumor Patient Data Age: 54 Gender: M Height: 1.78 m Weight: 95.5 kg Last Vital Signs Temp 36.6 C 03/08/25 10:08 Pulse 66 03/08/25 10:08 Resp 16 03/08/25 10:08 BP 116/73 03/08/25 10:08 Pulse Ox 99 03/08/25 10:08 O2 Del Method Room Air 03/08/25 10:08 Allergies Allergy/AdvReac Type Severity Reaction Status Date / Time methotrexate Allergy Other Verified 03/08/25 10:36 simvastatin Allergy Other Verified 03/08/25 10:36 Home Medications ?Medication ?Instructions ?Recorded ?Confirmed ?Type clobetasol 0.05 % topical cream 1 applic topical BID 11/12/22 03/05/25 History cyclobenzaprine 5 mg tablet 5 mg PO TID PRN muscle spasm #60 01/22/25 03/05/25 Rx tabs ibuprofen 600 mg tablet 600 mg PO TID PRN pain #30 tabs 02/10/25 03/05/25 Rx tamsulosin 0.4 mg capsule (Flomax) 0.4 mg PO HS #14 caps 02/10/25 03/05/25 Rx finasteride 5 mg tablet 5 mg PO HS 03/05/25 03/05/25 History risankizumab-rzaa 150 mg/mL 150 mg subcut MONTHLY 03/05/25 03/05/25 History subcutaneous pen injector (Skyrizi) Patient hx anesthesia problems: none Family hx anesthesia problems: none Results Review: All pre-operative results and documents have been reviewed as part of the pre- operative evaluation. COUNTS INCLUDE 234 BEDS AT THE [facility] Past Medical History Medical History Kidney stone Hyperlipidemia, unspecified Insomnia, unspecified Psoriasis, unspecified Gastro-esophageal reflux disease without esophagitis Nonalcoholic steatohepatitis (HOFFMAN) Surgical History Surgical History Hx of cholecystectomy 01/01/2104 Family History Family History Other Family history of arthritis Family history of malignant neoplasm Hypertension Social History Social History Smoking packs per day: 1.5 Smoking cigarettes per day: 30.0 Years smoked: 20 Smoking pack-years: 30.00 Smoking status: Former smoker Tobacco type: cigarettes Smoking end date: 03/05/13 Alcohol intake: current Drinks per week: 2 Substance use: never Substance use type: does not use Lack of Transportation: No Lack of Food: Never True Current Housing: I Have Housing Concerned About Future Housing: No Difficulty Paying Gas/Electric Bills: No Difficulty Paying for Meds: No Currently Unemployed: No Living arrangements: with family Occupation/Education: occupation Gender identity (if verbalized by the patient): Male Sexual Orientation (if Verbalized by the Patient): Straight or Heterosexual Spiritual care concerns: No Anes - Eval Final PreProcedure Day of Procedure 03/08/25 11:12 Patient weight: obese Heart: regular rate and rhythm Lungs: clear to auscultation Airway: Mallampati scale class II Neurological: alert and oriented Last oral intake: >/= 8 hours ASA classification: III Emergent: no Anesthetic plan: proceed Anesthesia type and monitoring: general LMA and standard monitoring Results Review: All pre-operative results and documents have been reviewed as part of the pre- operative evaluation. Informed Consent: The patient's anesthetic plan and its attendant risks and benefits were discussed with the patient/family/POA. Questions were solicited and answers provided to the satisfaction of the patient/family/POA.
[2025-03-08] MEDS: ceFAZolin 2 GM/D5W 50 ML 2 GM/50 ML BAG IVPB (12:01)
[2025-03-08] MEDS: LIDOCAINE 2% GEL UROJET 10 ML PKG MUCOUS MEM (12:20)
[2025-03-08] MEDS: SODIUM CHLORIDE 0.9% IV 23.7 ML, GEMCITABINE HCL 1,000 MG BLADDER ×2 (13:05→13:07)
--- NOTE | 2025-03-08 13:21 | W.PM.PROC2 ---
Procedure Note - Detailed Date of Procedure 03/08/25 Pre-op Diagnosis Bladder Tumor Post-op Diagnosis Same Procedure Performed TURBT (large 5cm) Surgeon Maxim Craft MD Anesthesia General Description of Procedure Patient is brought to the operative suite was prepped draped in routine sterile fashion while in dorsal lithotomy position after the uneventful induction of a general LMA anesthetic. Cystoscopy was undertaken 1st with a 24 F resectoscope. He has noted urethral strictures and no significant prostate hyperplasia. He has a smaller papillary neoplasm arising at the bladder neck at about the 9 o'clock position. This is 1st resected with the loop electrode and an attempt to include detrusor muscle for pathological evaluation of invasion. He has a larger 5 cm lesion in the left posterior lateral bladder wall just above the left ureteral orifice. There are couple smaller satellite lesions. All visible neoplasm is resected with a 24 F loop. This is stone with great care to avoid injury to the left ureteral orifice. Samples from the bladder tumor base were sent as a separate specimen. The base and periphery are cauterized, again with care taken to avoid injury to the ureteral orifices. An 8 F ball-tip catheter was then used to obtain bilateral retrograde pyelogram. This demonstrates no evidence of filling defect obstruction or other identifiable upper tract pathology. I did place an 18 F catheter for gemcitabine instillation in PACU Drains No Packing No Pathology Yes Complications No immediate complications
--- NOTE | 2025-03-08 13:23 | W.PM.PROC2 ---
Procedure Note - Detailed Date of Procedure 03/08/25 Pre-op Diagnosis Bladder Tumor Post-op Diagnosis Same Procedure Performed Gemcitabine installation Surgeon Maxim Craft MD Anesthesia General Description of Procedure With the patient in the supine position, a 16F Espinosa catheter is placed using sterile technique. Using a protective facemask, gown and double layer of gloves Gemcitabine 2gm in 100cc saline is administered through the catheter/into the bladder. The catheter is then plugged. Patient was instructed to lie supine x20min, then to roll both the left and right x20 min. each. Total dwell time will be 60 min., after which the bladder will be drained and catheter removed.
[2025-03-08] MEDS: fentaNYL CITRATE INJ (*CRX) 100 MCG/2 ML VIAL 25 MCG IV PUSH (13:26)
== END 2025-03-08 15:18 | disposition home or self-care (01) ==
PROVIDERS: PCP Family Medicine; Visit Provider Urology
PROC: 0TBB8ZZ Excision of Bladder, Via Natural or Artificial Opening Endoscopic (ICD-10-PCS; CPT 52235; principal; 2025-03-08 13:00)
PROC: (CPT 52352; 2025-03-08 13:00)
DX: C67.8 Malignant neoplasm of overlapping sites of bladder (principal); Z87.891 Personal history of nicotine dependence; E66.9 Obesity, unspecified; Z68.30 Body mass index [BMI] 30.0-30.9, adult
CPT/HCPCS: 52235; 51720; 74420; 88305; C1758; C1769; J0690; J2003; J2250; J2405; J2704; J3010; J7120; J9201; Q9966

== ENCOUNTER 2025-08-02 00:59 | Day surgery (SDC) | payer OTHER, SELFPAY ==
--- NOTE | 2025-07-24 09:40 | PC.NURSE ---
Report to the Outpatient Waiting Room, entrance under the green pavilion located off [facility], at time _0730_ on date _[id number]_. Planned Procedure Time: _0930_.? Time changes happen often and if your time is changed the preop area will call you the afternoon before. - You and your visitor will be asked to self-screen and do not enter if you have any COVID symptoms. Please call surgeon if you need to reschedule. - A mask is optional within the hospital at this time. Patients may have clear liquids (water, carbonated beverages, clear teas, apple juice) until 3 hours prior to surgery with a maximum of 20 ounces. - No food from midnight until time of surgery and no smoking, or chewing tobacco (or any form of nicotine). No chewing gum, candy or mints. Take only the following medications with a SIP of water on the morning of surgery: __None DO NOT STOP ANY OF YOUR OTHER PRESCRIPTION MEDICATIONS PRIOR TO SURGERY EXCEPT THE FOLLOWING Hold all vitamins and supplements for 3 days per anesthesiologist. Medications to discontinue per physician ___Ibuprofen per Dr Craft.____ Date to take last dose Please no make-up, nail divehi, hairspray, perfume, deodorant, or body powder the day of surgery.? No jewelry (including any body piercings) or valuables the day of surgery, leave them at home.? Please take a shower or bath the night before, or the morning of, surgery with an antibacterial soap.? Wear comfortable, loose fitting clothing.? - Jewelry must be removed prior to entering the operating room.? Rings and piercings that are not removed may be cut off. - The hospital will not accept responsibility for valuables.? - Please leave all valuables, including medications, at home the day of surgery. If you are going home after surgery, a licensed customer service driver must drive you home.? - NO public transportation without another adult if you receive anesthesia. - We recommend that an adult stay with you for 24 hours following discharge. - We also recommend that you do not drive, make important decision, drink alcoholic beverages, or take any drugs that were not prescribed by your health care provider for at least 24 hours after your discharge time. Follow any additional instructions given to you from your surgeon. Telephone instructions given to __Craig__and asked if any additional questions and then verbalized understanding. Patient advised to call surgeon office or pre surgery nurse liaison [phone] if any additional questions.
[2025-07-24 10:12] VITALS: BMI 30.2
--- NOTE | 2025-07-30 07:03 | PM.HPGS ---
History of Present Illness History of Present Illness Consent: Risks, benefits, and alternatives have been discussed and questions answered. Patient agrees to proceed with procedure. Chief complaint: scrotal sebaceous cyst, gross hematuria Narrative: The patient is a 54 year old male is here for an evaluation of their diagnosis of bladder cancer.Last bladder cancer treatment was a TURBT (1st in 03/2025). Note for Bladder cancer follow-up: . 03/2025: ?1st TURBT (large) just above left u/o - Ta, low-grade [Low Risk] ?Bilat. RPG: normal ?Plan: ?Surveillance cysto.: - @3-months -> if first negative repeat @6-months then annually ?- may stop after 5-years is all negative (SDM) ?- no cytology ?BCG: None ?Imaging: No need to repeat upper tract imaging 07/10/25: ?Cysto.: 4 papillary tumors scattered Note:?Cystoscopy shows 4 tiny papillary recurrent neoplasms, 1 in the posterior midline in the others more near the bladder neck. I will schedule TURBT with gemcitabine. ?Simultaneously we will do excision of a large scrotal sebaceous cyst. ?Lastly, we had a long talk about induction BCG and I think he will offer that in the future Review of Systems Review of Systems: All systems reviewed & are unremarkable except as noted in HPI and below PMFSH Past Medical History Medical History Kidney stone Hyperlipidemia, unspecified Insomnia, unspecified Psoriasis, unspecified Gastro-esophageal reflux disease without esophagitis Nonalcoholic steatohepatitis (HOFFMAN) Surgical History Surgical History Hx of cholecystectomy 01/01/2104 Family History Family History Other Family history of arthritis Family history of malignant neoplasm Hypertension Social History Social History Smoking packs per day: 1.5 Smoking cigarettes per day: 30.0 Years smoked: 20 Smoking pack-years: 30.00 Smoking status: Former smoker Tobacco type: cigarettes Smoking end date: 03/05/13 Alcohol intake: current Drinks per week: 2 Substance use: never Substance use type: does not use Lack of Transportation: No Lack of Food: Never True Current Housing: I Have Housing Concerned About Future Housing: No Difficulty Paying Gas/Electric Bills: No Difficulty Paying for Meds: No Currently Unemployed: No Living arrangements: with family Occupation/Education: occupation Gender identity (if verbalized by the patient): Male Sexual Orientation (if Verbalized by the Patient): Straight or Heterosexual Spiritual care concerns: No Meds Home Medications and Allergies Home Medications ?Medication ?Instructions ?Recorded ?Confirmed ?Type clobetasol 0.05 % topical cream 1 applic topical BID 11/12/22 07/24/25 History ibuprofen 600 mg tablet 600 mg PO TID PRN pain #30 tabs 02/10/25 07/24/25 Rx tamsulosin 0.4 mg capsule (Flomax) 0.4 mg PO HS #14 caps 02/10/25 07/24/25 Rx finasteride 5 mg tablet 5 mg PO HS 03/05/25 07/24/25 History risankizumab-rzaa 150 mg/mL 150 mg subcut MONTHLY 03/05/25 07/24/25 History subcutaneous pen injector (Skyrizi) tizanidine 2 mg capsule 2 mg PO TID PRN muscle spasticity 07/20/25 07/24/25 Rx #60 caps Allergies Allergy/AdvReac Type Severity Reaction Status Date / Time methotrexate Allergy Other Verified 07/24/25 09:46 simvastatin Allergy Other Verified 07/24/25 09:46 Exam Const: General: no acute distress Resp: Effort & Inspection: normal respiratory effort GI: Inspection: non-distended GI Palp: No abdominal tenderness and No Guarding due to palpation present (GI) Auscultation: normal bowel sounds Assessment and Plan Assessment and plan (1) Cancer of overlapping sites of bladder: Code(s): C67.8 - Malignant neoplasm of overlapping sites of bladder Status: Acute (2) Scrotal sebaceous cyst: Code(s): L72.3 - Sebaceous cyst Status: Acute Assessment and Plan: TURBT with gemcitabine installation Excision scrotal sebaceous cyst
[2025-08-02] VITALS (10 sets, daily range): BP systolic 108–125; BP diastolic 63–84; PULSE 46–79; RESP 12–18; TEMP 36.2–36.4; O2SAT 97–100; BMI 29.2
--- NOTE | 2025-08-02 06:18 | WPDHPUPDATE1 ---
History and Physical Update Update Date/Time: 08/02/25 06:18 History and Physical has been reviewed, including an updated exam of the patient. There are NO changes in the patient's condition. Risks, benefits, and alternatives have been discussed and questions answered. Patient agrees to proceed with procedure.
--- NOTE | 2025-08-02 08:29 | P.PNAN_ITS ---
Anes - Initial Pre Proc Eval Procedure: Operation Date: 08/02/25 09:30 Proposed Procedures p Transurethral Resection Bladder Tumor with Gemcitabine Instillation - Maxim Craft MD s Excision of Scrotal Sebaceous Cyst - Maxim Craft MD Date/Time: 08/02/25 08:29 Surgeon: Maxim Craft MD Pre Op Diagnosis: scrotal sebaceous cyst, gross hematuria Patient Data Age: 54 Gender: M Height: 1.78 m Weight: 92.6 kg Last Vital Signs Temp 36.4 C 08/02/25 07:32 Pulse 59 L 08/02/25 07:32 Resp 16 08/02/25 07:32 BP 116/66 08/02/25 07:32 Pulse Ox 98 08/02/25 07:32 O2 Del Method Room Air 08/02/25 07:32 Allergies Allergy/AdvReac Type Severity Reaction Status Date / Time methotrexate Allergy Other Verified 07/24/25 09:46 simvastatin Allergy Other Verified 07/24/25 09:46 Home Medications ?Medication ?Instructions ?Recorded ?Confirmed ?Type clobetasol 0.05 % topical cream 1 applic topical BID 0 11/12/22 07/24/25 History ibuprofen 600 mg tablet 600 mg PO TID PRN pain #30 t abs 02/10/25 07/24/25 Rx tamsulosin 0.4 mg capsule (Flomax) 0.4 mg PO HS #14 ca ps 02/10/25 07/24/25 Rx finasteride 5 mg tablet 5 mg PO HS 03/05/25 07/24/25 History risankizumab-rzaa 150 mg/mL 150 mg subcut MONTHLY 02/0707/24/25 History subcutaneous pen injector (Skyrizi) tizanidine 2 mg capsule 2 mg PO TID PRN muscle spast icity 07/20/25 07/24/25 Rx #60 caps Patient hx anesthesia problems: none Family hx anesthesia problems: none Results Review: All pre-operative results and documents have been reviewed as part of the pre- operative evaluation. [facility] Past Medical History Medical History Kidney stone Hyperlipidemia, unspecified Insomnia, unspecified Psoriasis, unspecified Gastro-esophageal reflux disease without esophagitis Nonalcoholic steatohepatitis (HOFFMAN) Surgical History Surgical History Hx of cholecystectomy 01/01/2104 Family History Family History Other Family history of arthritis Family history of malignant neoplasm Hypertension Social History Social History Smoking packs per day: 1.5 Smoking cigarettes per day: 30.0 Years smoked: 20 Smoking pack-years: 30.00 Smoking status: Former smoker Tobacco type: cigarettes Smoking end date: 03/05/13 Alcohol intake: current Drinks per week: 2 Substance use: never Substance use type: does not use Lack of Transportation: No Lack of Food: Never True Current Housing: I Have Housing Concerned About Future Housing: No Difficulty Paying Gas/Electric Bills: No Difficulty Paying for Meds: No Currently Unemployed: No Living arrangements: with family Occupation/Education: occupation Gender identity (if verbalized by the patient): Male Sexual Orientation (if Verbalized by the Patient): Straight or Heterosexual Spiritual care concerns: No Anes - Eval Final PreProcedure Day of Procedure 08/02/25 08:29 Patient weight: overweight Heart: regular rate and rhythm Lungs: clear to auscultation Airway: Mallampati scale class II Neurological: alert and oriented Last oral intake: >/= 8 hours ASA classification: II Emergent: no Anesthetic plan: proceed Anesthesia type and monitoring: general LMA and standard monitoring Results Review: All pre-operative results and documents have been reviewed as part of the pre- operative evaluation. Informed Consent: The patient's anesthetic plan and its attendant risks and benefits were discussed with the patient/family/POA. Questions were solicited and answers provided to the satisfaction of the patient/family/POA.
[2025-08-02] MEDS: LACTATED RINGERS 1,000 ML 30 ML IV CONT ×2 (08:33→10:33)
[2025-08-02] MEDS: ceFAZolin 2 GM in SODIUM CHLORIDE 0.9% IV 50 ML 100 ML IVPB (09:22)
[2025-08-02] MEDS: LIDOCAINE 1% LOCAL INJ 10 ML VIAL INFILTRATE (09:53)
--- NOTE | 2025-08-02 09:58 | S_PTH ---
PATIENT: Ricardo Thomas LOC: [facility] U#:[id number] AGE/SX: 54/M ROOM: RE08/02/[address]: Maxim Craft MD : 1970 BED: DIS: 08/02/2025 SPEC #: [id number] RECD: 08/02/25 11:07 STATUS: CAMILA RE #: [id number] PAT: 08/02/25 09:[address]: Maxim Craft DEPT: [facility] Surgical RECD BY: Jenna Johnson ENTERED: 08/02/25 11:08 SP TYPE: Surgical OTHR DR: Wili Eason MD Tissues: A - Cyst B - Bladder Tumor C - Bladder Biopsy Procedures: Hematoxylin and Eosin Stain Gross and Microscopic Level 4 CK 20
[2025-08-02] MEDS: SODIUM CHLORIDE 0.9% IV 23.7 ML, GEMCITABINE HCL 1,000 MG BLADDER ×2 (10:38)
--- NOTE | 2025-08-02 10:39 | W.PM.PROC2 ---
Procedure Note - Detailed Date of Procedure 08/02/25 Pre-op Diagnosis scrotal sebaceous cyst, gross hematuria Post-op Diagnosis Same Procedure Performed 1. Excision scrotal sebaceous cyst 2. TURBT (medium, 3cm) Surgeon Maxim Craft MD Anesthesia General Description of Procedure Patient was 1st brought to the operative suite was prepped draped in routine sterile fashion with dorsal lithotomy position after the uneventful induction of a general anesthesia. A incision made in the scrotal wall overlying the large right hemiscrotal some basis cyst. The cyst was meticulously dissected from the overlying soft tissue and removed in its entirety. Hemostasis attained with electrocautery. Dartos muscle was closed with running 4-0 chromic and skin is likewise closed with a running 4-0 chromic. We then placed a 24 F resectoscope. He has 1 small papillary lesion in the posterior bladder wall and another 3 circumferentially around the bladder neck. All resected with an attempt to include detrusor muscle for pathological evaluation of invasion. Base and periphery were cauterized. This is all done with care to avoid any injury to the ureteral orifices. There was an area of hyperemia in the posterior bladder wall which we biopsied separately and cauterized the base of that, as well. Resectoscope was removed and an 18 F Espinosa was placed to drainage for gemcitabine installation in PACU. Drains No Packing No Pathology Yes
--- NOTE | 2025-08-02 10:42 | W.PM.PROC2 ---
Procedure Note - Detailed Date of Procedure 08/02/25 Pre-op Diagnosis Bladder tumors Post-op Diagnosis Same Procedure Performed Gemcitabine installation Surgeon Maxim Craft MD Anesthesia General and None Description of Procedure With the patient in the supine position, a 16F Espinosa catheter is placed using sterile technique. Using a protective facemask, gown and double layer of gloves Gemcitabine 2gm in 100cc saline is administered through the catheter/into the bladder. The catheter is then plugged. Patient was instructed to lie supine x20min, then to roll both the left and right x20 min. each. Total dwell time will be 60 min., after which the bladder will be drained and catheter removed.
[2025-08-02] MEDS: fentaNYL CITRATE INJ (*CRX) 100 MCG/2 ML VIAL 25 MCG IV PUSH ×2 (11:24→11:27)
== END 2025-08-02 12:55 | disposition home or self-care (01) ==
PROVIDERS: PCP Family Medicine; Visit Provider Urology
PROC: 0TBB8ZZ Excision of Bladder, Via Natural or Artificial Opening Endoscopic (ICD-10-PCS; CPT 52235; principal; 2025-08-02 09:30)
PROC: (CPT 54060; 2025-08-02 09:30)
DX: C67.8 Malignant neoplasm of overlapping sites of bladder (principal); L72.3 Sebaceous cyst; N30.90 Cystitis, unspecified without hematuria; E78.5 Hyperlipidemia, unspecified; G47.00 Insomnia, unspecified; K21.9 Gastro-esophageal reflux disease without esophagitis; K75.81 Nonalcoholic steatohepatitis (NASH); L40.9 Psoriasis, unspecified; Z79.1 Long term (current) use of non-steroidal anti-inflammatories (NSAID); Z79.85 Long-term (current) use of injectable non-insulin antidiabetic drugs; Z90.49 Acquired absence of other specified parts of digestive tract; Z87.891 Personal history of nicotine dependence; Z87.442 Personal history of urinary calculi; Z80.9 Family history of malignant neoplasm, unspecified
CPT/HCPCS: 52235; 11426; 51720; 88305; 88342; J0690; A9270; J1100; J2003; J2250; J2405; J2704; J3010; J7120; J9201